=== PATIENT | female | born 1975 | race African-American/Black ===

== ENCOUNTER 2018-03-13 07:55 | Inpatient (IN) | payer OTHER ==
[2018-03-12 12:39] VITALS: BMI 36.8
[2018-03-13] MEDS ORDERED: DEXAMETHASONE SOD PHOSPHATE/PF 10 MG/ML SDV ONE (08:37)
[2018-03-13] MEDS ORDERED: ROPIVACAINE HCL 0.5% 30ML VIAL ONE (08:37)
[2018-03-13] MEDS ORDERED: MIDAZOLAM HCL 2 MG/2 ML SINGLE DOSE VIAL ONE ×2 (08:38)
--- NOTE | 2018-03-13 08:43 | HP ---
Admitting History and Physical - Admission Chief Complaint: Morbid obesity History Source: Patient Limitations to Obtaining History: No Limitations - Past Medical History Cardiovascular: Yes: HTN Pulmonary: Yes: Asthma ...LMP: 02/23/18 ...LMP Comment: HEAVY PERIODS ...: No - Smoking History Smoking history: Never smoked - Alcohol/Substance Use Hx Alcohol Use: No Home Medications - Allergies Allergies/Adverse Reactions: Allergies Allergy/AdvReac Type Severity Reaction Status Date / Time adhesive AdvReac Severe Verified 03/13/18 08:32 adhesive tape AdvReac Severe Verified 03/13/18 08:32 - Home Medications Home Medications: Ambulatory Orders Naproxen [Naprosyn -] 500 mg PO DAILY 05/17/15 Albuterol Sulfate [Proair Respiclick] 90 mcg IH PRN PRN 02/06/18 Chlorthalidone 25 mg PO DAILY 02/06/18 Ferrous Sulfate 325 mg PO DAILY 02/06/18 Propranolol HCl 20 mg PO BID 02/06/18 Sumatriptan Succinate [Imitrex -] 50 mg PO PRN PRN 02/06/18 predniSONE [Deltasone -] 40 mg PO ASDIR 03/12/18 Famotidine [Pepcid] 20 mg PO BID #60 tablet 03/13/18 Oxycodone HCl/Acetaminophen [Percocet 5-325 mg Tablet] 1 - 2 tab PO Q6H #28 tab MDD 4 03/13/18 Family Disease History - Family Disease History Family Disease History: Diabetes: Father (htn, cva), Mother (alcohol, htn), Heart Disease: Father, Mother, CA: Mother Review of Systems - Review of Systems Constitutional: denies: Chills, Fever HENT: reports: No Symptoms Neck: reports: No Symptoms Cardiovascular: reports: No Symptoms Respiratory: reports: No Symptoms Gastrointestinal: reports: No Symptoms Neurological: denies: Change in LOC Pain Intensity: 0 Physical Examination Vital Signs: Vital Signs Temperature 97.4 F L 03/13/18 08:28 Pulse Rate 77 03/13/18 08:28 Respiratory Rate 20 03/13/18 08:28 Blood Pressure 114/80 03/13/18 08:28 O2 Sat by Pulse Oximetry (%) 96 03/13/18 08:28 HENT: Yes: WNL Neck: Yes: WNL Cardiovascular: Yes: Regular Rate and Rhythm Respiratory: Yes: Regular Gastrointestinal: Yes: Soft, Abdomen, Obese Neurological: Yes: Alert, Oriented Problem List - Problems (1) Morbid obesity due to excess calories Code(s): E66.01 - MORBID (SEVERE) OBESITY DUE TO EXCESS CALORIES (2) Sleep apnea Code(s): G47.30 - SLEEP APNEA, UNSPECIFIED Qualifiers: Sleep apnea type: obstructive Qualified Code(s): G47.33 - Obstructive sleep apnea (adult) (pediatric) (3) Obesity (BMI 30-39.9) Code(s): E66.9 - OBESITY, UNSPECIFIED Assessment/Plan Laparoscopic possible open vertical sleeve gastrectomy possible liver biopsy EGD
[2018-03-13] MEDS ORDERED: ALBUTEROL SO4 8 GM HFA INHALER IH PRN (08:44)
[2018-03-13] MEDS ORDERED: DEXAMETHASONE SOD PHOSPHATE 4 MG/1 ML VIAL ONE (08:58)
[2018-03-13] MEDS ORDERED: ONDANSETRON 4 MG/2 ML VIAL ONE ×2 (08:58→11:22)
[2018-03-13] MEDS ORDERED: ROCURONIUM BROMIDE 50 MG/5 ML VIAL ONE ×2 (08:59→09:37)
[2018-03-13] MEDS ORDERED: PROPOFOL 20 ML ONE ×2 (08:59)
[2018-03-13] MEDS ORDERED: fentaNYL CITRATE 250 MCG/5 ML VIAL ONE (08:59)
[2018-03-13] MEDS ORDERED: ceFAZolin SODIUM 1 GM VIAL IVPB ONE (09:38)
[2018-03-13] MEDS ORDERED: BUPIVACAINE HCL/PF (5 MG/ML) 30 ML VIAL IJ ONE (10:25)
[2018-03-13] MEDS ORDERED: GLYCOPYRROLATE 0.2 MG/1 ML VIAL ONE (10:31)
[2018-03-13] MEDS ORDERED: NEOSTIGMINE METHYLSULFATE 0.5 MG/ML - 10 ML MDV ONE (10:31)
--- NOTE | 2018-03-13 10:40 | SURG ---
Surgery Water Filterer Note Water Filterer: Rachna Machuca PA-C Date of Service: 03/13/18 Diagnosis: morbid obesity Procedure: laparoscopic vertical sleeve gastrectomy, liver biopsy, EGD I was present for the entirety of the operative procedure. For further detail, please refer to operative report. Visit type - Case Type Case Type: Scheduled - Emergency Emergency Visit: No - New patient This patient is new to me today: Yes Date on this admission: 03/13/18
--- NOTE | 2018-03-13 10:41 | OP ---
Operative Note - Note: Operative Date: 03/13/18 Pre-Operative Diagnosis: Morbid obesity Operation: Laparoscopic vertical sleeve gastrectomy, liver biopsy, EGD Post-Operative Diagnosis: Same as Pre-op (as well as hepatomegaly) Surgeon: Farzad Daly Anesthesiologist/REIN[employer]CING [employer] WORKERS: Rachna Machuca Anesthesia: General Specimens Removed: Greater curvature of stomach. Liver biopsy Estimated Blood Loss (mls): 30 Drains & Tubes with Location: 36 Fr Bougie Operative Report Dictated: Yes
[2018-03-13] MEDS: LABETALOL HCL 5 MG/1 ML (100MG/20 ML VIAL) IVPUSH ONE ×2 (11:05→11:20)
--- NOTE | 2018-03-13 11:07 | SPEC ---
DATE OF OPERATION: 03/13/2018 PREOPERATIVE DIAGNOSES: 1. Morbid obesity. 2. Body mass index of 36.9. 3. Sleep apnea. 4. Hypertension. POSTOPERATIVE DIAGNOSES: 1. Morbid obesity. 2. Body mass index of 36.9. 3. Sleep apnea. 4. Hypertension. 5. Hepatomegaly. PROCEDURES PERFORMED: 1. Laparoscopic vertical sleeve gastrectomy. 2. Laparoscopic wedge liver biopsy. 3. Esophagogastroduodenoscopy. SURGEON: Farzad Daly M.D. HELMINTHOLOGY TEACHER: GISSEL Burdick SPECIMEN: 1. Greater curvature of the stomach. 2. Liver biopsy. ESTIMATED BLOOD LOSS: 30 mL. DRAINS: None. ANESTHESIA: GET. BOUGIE SIZE: 36 [place] REASON FOR PROCEDURE: The patient is a 43-year-old female who presents for weight loss options. After describing the different options, she decided to proceed with a laparoscopic, possible open vertical sleeve gastrectomy, possible liver biopsy and EGD. The patient was seen by the respective subspecialties and cleared for surgery. The risks and benefits of the procedure were explained. These included bleeding, infection, hernia, NJ, DVT, PE, injury to surrounding structures including the liver, colon, bowel, spleen, esophagus, vessel injury, nerve injury, weight regain, gastric leak, staple line leak, sleeve leak, obstruction, vitamin deficiency, hair loss and as some of the possible complications. The patient understood and signed informed consent. DESCRIPTION OF PROCEDURE: The patient was placed supine on the operating room table. The patient underwent general endotracheal intubation. The arms were brought out at 90 degrees and secured. A footboard was placed and the legs were secured laterally with padding. The abdomen was prepped and draped in the usual sterile fashion. A timeout was performed. An incision was made in the left upper quadrant and a Veress needle inserted. Pneumoperitoneum was established. Subsequently, the Veress needle was removed and a 5-mm trocar was placed under direct visualization with the laparoscope. The laparoscopic camera was then inserted and inspection of the abdominal cavity was performed. An incision was then made in the supraumbilical area and a 15-mm trocar was placed under direct visualization. A 5-mm trocar was then placed in the right upper quadrant and a 5-mm trocar was placed below the left subcostal margin. A stab wound was made in the subxiphoid area and a Sherly clamp inserted and removed to dilate the tract. A Jaqui liver retractor was inserted. The post was secured at the bedside by the nursing staff. The patient was placed in steep reverse Trendelenburg position and the Jaqui liver retractor was used to secure the liver towards the anterior abdominal wall. The pylorus was identified and 6 cm proximal to it, the lesser sac was entered using the LigaSure device. All lateral attachments to the greater curvature of the stomach, including the short gastric vessels, were ligated using the LigaSure device toward the gastrosplenic and gastrophrenic ligaments. Once this was done in its entirety, it was confirmed that all tubes within the nasal or oropharyngeal cavity, including a temperature probe, was removed by Anesthesia. The bougie was then inserted by Anesthesia. Transection of the stomach was then begun staying adjacent to the bougie but away from the angularis. Transection of the stomach was performed near the portion of the stomach where the lesser sac was entered. Two laparoscopic Endo-BLAINE black rula were used at this location. Laparoscopic Endo BLAINE purple staple loads were then used for the remainder of the transection until the greater curvature of the stomach was fully transected. This was done staying close to the bougie. Care was taken to stay away from the angle of His cephalad. The staple line was then inspected. Hemostasis was identified. A leak test was then performed. It was clamped distally to the staple line. Irrigation solution was placed in the left upper quadrant and air was insufflated by Anesthesia into the sleeve. No leaks were identified. No obstruction was identified. This was done through the entirety of the staple line. In addition, an upper endoscopy was performed. The endoscope was placed into the patients mouth and the entirety of the esophagus, GE junction, gastric pouch and staple line were inspected. No obstruction or leak was noted. The stomach was suctioned and the endoscope removed fully intact. At this point, the irrigation solution was suctioned and again, hemostasis was noted. A wedge liver biopsy was then performed. The left lobe of the liver was identified and a portion of the edge was grasped. Using electrocautery, a wedge of the liver was excised. This was removed and sent off the field as specimen. Hemostasis at the site of the wedge liver biopsy was attained using electrocautery. The 15-mm supraumbilical trocar was then removed and the greater curvature specimen removed from the site using a sponge stick hooker. The specimen was inspected and a Veress needle inserted. The specimen insufflated adequately and no leak was identified. The staple line was noted to be intact. A Nickolas-Tanika device was then used to close the fascia with a 0 Vicryl suture at the site. Again, hemostasis was noted. The Jaqui liver retractor was then removed under direct visualization. Pneumoperitoneum was desufflated and the fascial sutures were secured. Hemostasis was noted at all incision sites and Marcaine was injected at all incision sites. All incision sites were closed using 4-0 Biosyn. Sterile dressings were applied. The patient tolerated the procedure well and was transferred to the recovery room in stable condition. The patient was transferred to telemetry for further monitoring. Brandee [id number]
[2018-03-13] MEDS: MIDAZOLAM HCL 10 MG/10 ML VIAL IVPUSH SCH ×4 (11:20→11:50)
[2018-03-13] MEDS ORDERED: METOCLOPRAMIDE HCL INJECTION 10 MG/2 ML VIAL ONE (11:22)
[2018-03-13] MEDS ORDERED: FAMOTIDINE 20 MG/50 ML IVPB 20 MG/50 ML MG IVPB ONE (11:22)
[2018-03-13] MEDS ORDERED: ACETAMINOPHEN INJECTION 100 ML IVPB ONE (11:22)
[2018-03-13 11:26] LABS: HEMATOCRIT 37.4 % (32.4-45.2); HEMOGLOBIN 12.2 GM/dL (10.7-15.3); MCH 28.7 pg (25.7-33.7); MCHC 32.6 g/dl (32.0-36.0); MEAN CELL VOLUME 88.1 fl (80-96); MEAN PLT VOLUME 9.3 fl (7.5-11.1); PLATELET COUNT 305 K/MM3 (134-434); RBC 4.24 M/mm3 (3.60-5.2); RDW 16.4 % (11.6-15.6); WHITE BLOOD COUNT 11.4 K/mm3 (4.0-10.0)
[2018-03-13] MEDS: ACETAMINOPHEN 1000 MG/100 ML VIAL (NON FORMULARY) IVPB SCH ×3 (11:30→17:11)
[2018-03-13] MEDS ORDERED: ALBUTEROL SO4 0.083% IH SOL 2.5 MG/3 ML VIAL.NEB. NEB ONE (11:30)
[2018-03-13] MEDS ORDERED: hydrALAZINE HCL 20 MG/ML VIAL ONE (11:32)
[2018-03-13 11:54] LABS: ALBUMIN 3.2 g/dl (3.4-5.0); ALK PHOS 78 U/L (45-117); ANION GAP 8 (8-16); BILIRUBIN,TOTAL 0.2 mg/dL (0.2-1.0); BLOOD UREA NITROGEN 19 mg/dL (7-18); CALCIUM 8.4 mg/dL (8.5-10.1); CHLORIDE 106 mmol/L (98-107); CO2 30 mmol/L (21-32); CREATININE 1.2 mg/dL (0.55-1.02); GLUCOSE,RANDOM 155 mg/dL (74-106); POTASSIUM 3.5 mmol/L (3.5-5.1); SGOT/AST 93 U/L (15-37); SGPT/ALT 93 U/L (12-78); SODIUM 144 mmol/L (136-145); TOT PROT 6.6 g/dl (6.4-8.2)
[2018-03-13] MEDS ORDERED: hydrALAZINE HCL 20 MG/ML VIAL IVPUSH ONE (12:13)
[2018-03-13] MEDS: METOCLOPRAMIDE HCL INJECTION 10 MG/2 ML VIAL IVPUSH SCH ×2 (12:30→17:10)
[2018-03-13] MEDS: SODIUM CHLORIDE 1,000 ML IV SCH ×2 (14:21→20:11)
[2018-03-13] MEDS: ONDANSETRON 4 MG/2 ML VIAL IVPUSH SCH ×2 (15:30→18:32)
[2018-03-13] MEDS ORDERED: FAMOTIDINE 20 MG PREMIXED IVPB IVPB ONE (15:45)
[2018-03-13] MEDS: morphine SULFATE 4 MG/ML VIAL IVPUSH PRN ×2 (16:03→20:07)
[2018-03-13] MEDS: ENOXAPARIN NA (PORCINE) 40 MG/0.4 ML DISP.SYRIN SQ SCH (22:29)
[2018-03-13] MEDS: FAMOTIDINE 20 MG/50 ML IVPB 20 MG/50 ML MG IVPB SCH (22:30)
[2018-03-14] MEDS: ONDANSETRON 4 MG/2 ML VIAL IVPUSH SCH ×6 (00:01→17:05)
[2018-03-14] MEDS: METOCLOPRAMIDE HCL INJECTION 10 MG/2 ML VIAL IVPUSH SCH ×5 (00:01→18:30)
[2018-03-14] MEDS: ACETAMINOPHEN 1000 MG/100 ML VIAL (NON FORMULARY) IVPB SCH ×2 (00:01→05:50)
[2018-03-14] MEDS: SODIUM CHLORIDE 1,000 ML IV SCH ×2 (05:49→09:59)
[2018-03-14 08:02] LABS: HEMATOCRIT 35.2 % (32.4-45.2); HEMOGLOBIN 11.6 GM/dL (10.7-15.3); MCH 28.6 pg (25.7-33.7); MCHC 32.9 g/dl (32.0-36.0); MEAN PLT VOLUME 9.9 fl (7.5-11.1); PLATELET COUNT 287 K/MM3 (134-434); RBC 4.05 M/mm3 (3.60-5.2); RDW 16.4 % (11.6-15.6); WHITE BLOOD COUNT 16.8 K/mm3 (4.0-10.0)
[2018-03-14 08:27] LABS: ALBUMIN 2.9 g/dl (3.4-5.0); ALK PHOS 56 U/L (45-117); ANION GAP 8 (8-16); BILIRUBIN,TOTAL 0.2 mg/dL (0.2-1.0); BLOOD UREA NITROGEN 10 mg/dL (7-18); CALCIUM 7.8 mg/dL (8.5-10.1); CHLORIDE 101 mmol/L (98-107); CO2 30 mmol/L (21-32); CREATININE 0.9 mg/dL (0.55-1.02); GLUCOSE,RANDOM 125 mg/dL (74-106); POTASSIUM 3.3 mmol/L (3.5-5.1); SGOT/AST 79 U/L (15-37); SGPT/ALT 104 U/L (12-78); SODIUM 139 mmol/L (136-145)
[2018-03-14] MEDS: morphine SULFATE 4 MG/ML VIAL IVPUSH PRN ×2 (09:56→14:49)
[2018-03-14] MEDS: FAMOTIDINE 20 MG/50 ML IVPB 20 MG/50 ML MG IVPB SCH (09:58)
[2018-03-14] MEDS: ENOXAPARIN NA (PORCINE) 40 MG/0.4 ML DISP.SYRIN SQ SCH (09:58)
[2018-03-14 13:02] LABS: BASO % 0.1 % (0-2.0); HEMOGLOBIN 11.5 GM/dL (10.7-15.3); LYMPH % 17.2 % (8-40); MCH 28.7 pg (25.7-33.7); MEAN PLT VOLUME 8.5 fl (7.5-11.1); MONO % 6.1 % (3.8-10.2); NEUT % 76.6 % (42.8-82.8); PLATELET COUNT 278 K/MM3 (134-434); RBC 4.02 M/mm3 (3.60-5.2); RDW 16.3 % (11.6-15.6); WHITE BLOOD COUNT 16.4 K/mm3 (4.0-10.0)
--- NOTE | 2018-03-14 14:40 | PN ---
Progress Note (short form) - Note Progress Note: POD #1 NO acute events since surgery per RN notes. Alert. Doing well. C/o mild incisional tenderness. OOB and ambulating. Voiding spontaneously. Denies n/v/f/c, CP or SOB. Last Vital Signs Temp Pulse Resp BP Pulse Ox 98.5 F 76 18 139/74 97 03/14/18 09:00 03/14/18 09:00 03/14/18 09:00 03/14/18 09:00 03/14/18 09:00 UGI: no evidence of leak, extravasation or gastric outlet obstruction. Gen: nad ABD: all surgical ports c/d/i LE: scds bilat. nt. <Isaiah Rome P - Last Filed: 03/14/18 14:37> - Note Progress Note: Agree POD 1 No nausea AVSS UGI: no leak/obstruction Clears Discharge planning <Farzad Daly - Last Filed: 03/14/18 15:49> Problem List - Problems (1) Morbid obesity due to excess calories Assessment/Plan: Start Bariatric Stage 1 diet. Cont OOB and ambulate Pain management PRN DC home this evening if tolerates diet Code(s): E66.01 - MORBID (SEVERE) OBESITY DUE TO EXCESS CALORIES <Isaiah Rome P - Last Filed: 03/14/18 14:37> - Problems (1) Morbid obesity due to excess calories Code(s): E66.01 - MORBID (SEVERE) OBESITY DUE TO EXCESS CALORIES (2) Sleep apnea Code(s): G47.30 - SLEEP APNEA, UNSPECIFIED Qualifiers: Sleep apnea type: obstructive Qualified Code(s): G47.33 - Obstructive sleep apnea (adult) (pediatric) (3) Obesity (BMI 30-39.9) Code(s): E66.9 - OBESITY, UNSPECIFIED <Farzad Daly - Last Filed: 03/14/18 15:49>
[2018-03-14] MEDS ORDERED: PT OWN MED DRAWER 7, Y5N ONE (14:42)
[2018-03-14] MEDS ORDERED: CHLORTHALIDONE 25 MG TABLET PO SCH (16:00)
--- NOTE | 2018-03-14 17:44 | CON.CARD ---
Consult Consult Specialty:: Cardiology Reason for Consultation:: HTN - History of Present Illness Chief Complaint: BP high History of Present Illness: 43 f with a PMH of HTN x one year, obesity, migraines. S/P Laporscopic sleeve Bariatric surgery. BP's noted to be elevated. Last BP was 144/94 mmHg BP meds include chlorthalidone 25 mg daily and is on Inderal for Migraines. - Past Medical History Cardio/Vascular: Yes: HTN Pulmonary: Yes: Asthma ...LMP: 02/23/18 ...LMP Comment: HEAVY PERIODS ...: No - Alcohol/Substance Use Hx Alcohol Use: No - Smoking History Smoking history: Never smoked Home Medications - Allergies Allergies/Adverse Reactions: Allergies Allergy/AdvReac Type Severity Reaction Status Date / Time adhesive AdvReac Severe Verified 03/13/18 08:32 adhesive tape AdvReac Severe Verified 03/13/18 08:32 - Home Medications Home Medications: Ambulatory Orders Naproxen [Naprosyn -] 500 mg PO DAILY 05/17/15 Albuterol Sulfate [Proair Respiclick] 90 mcg IH PRN PRN 02/06/18 Chlorthalidone 25 mg PO DAILY 02/06/18 Ferrous Sulfate 325 mg PO DAILY 02/06/18 Propranolol HCl 20 mg PO BID 02/06/18 Sumatriptan Succinate [Imitrex -] 50 mg PO PRN PRN 02/06/18 predniSONE [Deltasone -] 40 mg PO ASDIR 03/12/18 Famotidine [Pepcid] 20 mg PO BID #60 tablet 03/13/18 Oxycodone HCl/Acetaminophen [Percocet 5-325 mg Tablet] 1 - 2 tab PO Q6H #28 tab MDD 4 03/13/18 Family Disease History - Family Disease History Family Disease History: Diabetes: Father (htn, cva), Mother (alcohol, htn), Heart Disease: Father, Mother, CA: Mother Vital Signs: Vital Signs Temperature 98.2 F 03/14/18 14:00 Pulse Rate 72 03/14/18 14:00 Respiratory Rate 20 03/14/18 14:00 Blood Pressure 159/91 03/14/18 14:00 O2 Sat by Pulse Oximetry (%) 97 03/14/18 09:00 Constitutional: Yes: No Distress HENT: Yes: WNL Neck: Yes: WNL Respiratory: Yes: CTA Bilaterally Gastrointestinal: Yes: Normal Bowel Sounds Cardiovascular: Yes: Regular Rate and Rhythm (NL S1S2 No MRHG) JVD: No Carotid Bruit: No Edema: No Neurological: Yes: Alert, Oriented - Other Data Labs, Other Data: CBC, BMP 03/14/18 12:55 03/14/18 06:25 Assessment/Plan 3 f with a PMH of HTN x one year, obesity, migraines. S/P Laporscopic sleeve Bariatric surgery. BP's noted to be elevated. Last BP was 144/94 mmHg BP meds include chlorthalidone 25 mg daily and is on Inderal for Migraines. Would add amlodipine 2.5 mg PO daily. Should follow up as outpatient for BP management. Call prn
[2018-03-14] MEDS ORDERED: amLODIPine BESYLATE 2.5 MG TABLET (FP) PO SCH (18:30)
[2018-03-14 19:53] VITALS: BP 140/82; PULSE 67; TEMP 98.7
--- NOTE | 2018-03-17 16:32 | PATH ---
Surgical Pathology Report Patient Name: WENCESLAO CRUZ [facility]. Rec. #: [id number] /Age/Gender: 1975 (Age: 43) / F Account: [id number] Location: 4 W TELEMETRY U Taken: 03/13/2018 Received: 03/13/2018 Reported: 03/17/2018 Physicians: Farzad Daly M.D. Specimen(s) Received A: GREATER CURVATURE STOMACH B: LIVER BIOPSY Clinical History Morbid obesity Final Diagnosis A. Stomach, greater curvature, laparoscopic vertical SLEEVE gastrectomy: Portion of stomach with moderate chronic ACTIVE gastritis. Immunohistochemical STAIN FOR H. Pylori is POSITIVE (many). B. Liver, biopsy: LIVER PARENCHYMA WITH MODERATE STEATOSIS (~60%). MILD FOCAL CHOLESTASIS. NO INCREASE IN IRON AND FIBROSIS ON PERFORMED SPECIAL STAINS (IRON AND TRICHROME). Electronically Signed Chel Dave M.D. Gross Description A. Received in formalin, labeled "greater curvature of stomach," is a 135 gram, 16.0 x 4.0 x 3.4 cm. portion of stomach with a stapled margin of resection. The serosa is trent-macario with minimal attached fat. The mucosa is trent-pink with focally flattened folds No mucosal masses are identified. Employment Appeals Examiner sections are submitted in one cassette. B. Received in formalin labeled "liver biopsy," is a 1.8 x 1.3 x 0.8 cm trent portion of soft tissue, consistent with a liver biopsy. The specimen is sectioned and entirely submitted in one cassette. /03/13/2018 saudi/03/13/2018
== END 2018-03-14 23:20 | disposition home or self-care (01) | DRG 403 ==
LOC: JSAMEDAYSX 07:55 → EDSTATUS 12:00 → J4W 15:45
PROVIDERS: ADMIT Surgery; ATTEND Surgery
PROC: 0DB64Z3 Excision of Stomach, Percutaneous Endoscopic Approach, Vertical (ICD-10-PCS; principal; 2018-03-13 10:00)
PROC: 0FB24ZX Excision of Left Lobe Liver, Percutaneous Endoscopic Approach, Diagnostic (ICD-10-PCS; 2018-03-13 10:00)
PROC: 0DJ08ZZ Inspection of Upper Intestinal Tract, Via Natural or Artificial Opening Endoscopic (ICD-10-PCS; 2018-03-13 10:00)
DX: E66.01 Morbid (severe) obesity due to excess calories (principal); Z68.39 Body mass index [BMI] 39.0-39.9, adult; R16.0 Hepatomegaly, not elsewhere classified; I10 Essential (primary) hypertension; J45.909 Unspecified asthma, uncomplicated; G47.30 Sleep apnea, unspecified
CPT/HCPCS: 36415; 74241-TC-FY; 80053; 84703; 85025; 85027; 86850; 86900; 86901; 88307-TC; 94010; 94760; J0131; J7030

== ENCOUNTER 2018-06-27 09:02 | Emergency (ER) | payer OTHER ==
[2018-06-27 09:15] VITALS: BMI 28.8
--- NOTE | 2018-06-27 09:25 | PDOC ---
History of Present Illness <Carlota Whitlock - Last Filed: 06/27/18 12:31> - History of Present Illness Initial Comments: 43 year old female s/p gastric sleeve (03/15) with PMH of diabetes and HTN (both resolved since gastric sleeve) presenting with left sided chest pain and shoulder pain for the past three weeks that has been complicated with numbness in her arm and fingers this AM. Patient denies any trauma or overuse. Her physical therapist believes that this was a light muscular injury. She hasn't taken Tylenol or Motrin because she had issues with her tylenol prescription and she cannot take motrin. Denies nausea, vomiting, diarrhea, constipation, fevers, chills, SOB, or other symptoms. 06/27/18 09:48 <Rafael Michele - Last Filed: 06/27/18 12:49> - General Chief Complaint: Pain Stated Complaint: PAIN Time Seen by Provider: 06/27/18 09:25 Past History <Carlota Whitlock - Last Filed: 06/27/18 12:31> - Past Medical History Anemia: No Asthma: Yes Cancer: No Cardiac Disorders: No CVA: No COPD: No CHF: No Dementia: No Diabetes: No GI Disorders: No Disorders: No HTN: Yes Hypercholesterolemia: Yes Liver Disease: No Seizures: No Thyroid Disease: No - Surgical History Abdominal Surgery: No Appendectomy: Yes (age 8) Cardiac Surgery: No Cholecystectomy: No Lung Surgery: No Neurologic Surgery: No Orthopedic Surgery: No - Suicide/Smoking/Psychosocial Hx Smoking History: Never smoked Hx Alcohol Use: No Drug/Substance Use Hx: No Substance Use Type: None Hx Substance Use Treatment: No <Rafael Michele - Last Filed: 06/27/18 12:49> - Past Medical History Allergies/Adverse Reactions: Allergies Allergy/AdvReac Type Severity Reaction Status Date / Time adhesive AdvReac Severe Verified 06/27/18 09:11 adhesive tape AdvReac Severe Verified 06/27/18 09:11 Home Medications: Ambulatory Orders Ferrous Sulfate 325 mg PO DAILY 02/06/18 Cholecalciferol (Vitamin D3) [Vitamin D3 -] 2,000 unit PO DAILY 06/27/18 Cyclobenzaprine HCl [Flexeril 10 mg] 10 mg PO TID PRN #15 tablet 06/27/18 Lidocaine 5% Patch [Lidoderm Patch -] 1 patch TP DAILY #7 patch 06/27/18 Potassium Chloride [Klor-Con] 20 meq PO ASDIR 06/27/18 Review of Systems - Review of Systems Constitutional: No: Chills, Diaphoresis, Fever HEENTM: No: Blurred Vision, Tearing Respiratory: No: Cough, Orthopnea, Shortness of Breath Cardiac (ROS): Yes: Chest Pain. No: Edema, Lightheadedness, Palpitations ABD/GI: No: Constipated, Diarrhea, Nausea : No: Dysuria, Discharge, Incontinence Integumentary: No: Change in Color, Flushing, Lesions, Lumps Neurological: Yes: Paresthesia. No: Numbness, Tremors, Weakness Psychiatric: No: Anxiety, Depression Hematologic/Lymphatic: No: Anemia, Blood Clots, Easy Bleeding <Rafael Michele - Last Filed: 06/27/18 12:49> *Physical Exam - Vital Signs Last Vital Signs Temp Pulse Resp BP Pulse Ox 98.4 F 71 16 123/68 99 06/27/18 09:14 06/27/18 09:14 06/27/18 09:14 06/27/18 09:14 06/27/18 09:14 <Carlota Whitlock - Last Filed: 06/27/18 12:31> - Vital Signs Last Vital Signs Temp Pulse Resp BP Pulse Ox 98.4 F 71 16 123/68 99 06/27/18 09:14 06/27/18 09:14 06/27/18 09:14 06/27/18 09:14 06/27/18 09:14 - Physical Exam General Appearance: Yes: Nourished, Appropriately Dressed. No: Apparent Distress HEENT: positive: EOMI, BEBO, Normal ENT Inspection, Normal Voice Neck: positive: Trachea midline, Normal Thyroid, Supple. negative: Tender, Rigid Respiratory/Chest: positive: Chest Tender (reproducible left sided upper rib tenderness), Lungs Clear, Normal Breath Sounds. negative: Respiratory Distress , Accessory Muscle Use Cardiovascular: positive: Regular Rhythm, Regular Rate Gastrointestinal/Abdominal: positive: Normal Bowel Sounds, Flat, Soft. negative : Tender Lymphatic: negative: Adenopathy, Tenderness Musculoskeletal: negative: Normal Inspection (left sided shoudler tenderness), Decreased Range of Motion Extremity: positive: Normal Capillary Refill, Tender (per above). negative: Normal Inspection Integumentary: positive: Normal Color, Dry, Warm Neurologic: positive: Fully Oriented, Alert, Normal Mood/Affect, Normal Response , Motor Strength 5/5 <Rafael Michele - Last Filed: 06/27/18 12:49> Moderate Sedation - Procedure Monitoring Vital Signs: Procedure Monitoring Vital Signs Temperature 98.4 F 06/27/18 09:14 Pulse Rate 71 06/27/18 09:14 Respiratory Rate 16 06/27/18 09:14 Blood Pressure 123/68 06/27/18 09:14 O2 Sat by Pulse Oximetry (%) 99 06/27/18 09:14 <Carlota Whitlock - Last Filed: 06/27/18 12:31> - Procedure Monitoring Vital Signs: Procedure Monitoring Vital Signs Temperature 98.4 F 06/27/18 09:14 Pulse Rate 71 06/27/18 09:14 Respiratory Rate 16 06/27/18 09:14 Blood Pressure 123/68 06/27/18 09:14 O2 Sat by Pulse Oximetry (%) 99 06/27/18 09:14 <Rafael Michele - Last Filed: 06/27/18 12:49> ED Treatment Course - ADDITIONAL ORDERS Additional order review: Laboratory Results 06/27/18 09:39 Urine HCG, Qual Negative - RADIOLOGY Radiology Studies Ordered: Category Date Time Status CHEST PA & LAT [RAD] Routine Radiology 06/27/18 12:01 Completed - Medications Given in the ED: ED Medications Discontinued Medications Generic Name Dose Route Start Last Admin Trade Name Beverly PRN Reason Stop Dose Admin Acetaminophen 1,000 mg 06/27/18 09:42 06/27/18 10:30 Tylenol - PO 06/27/18 09:43 Not Given ONCE ONE Acetaminophen 975 mg 06/27/18 09:43 06/27/18 09:53 Tylenol - PO 06/27/18 09:44 975 mg ONCE ONE Administration Lidocaine 1 patch 06/27/18 09:43 06/27/18 09:53 Lidoderm Patch - TP 06/27/18 09:44 1 patch ONCE ONE Administration <Carlota Whitlock - Last Filed: 06/27/18 12:31> Medical Decision Making - Medical Decision Making 43 year old female with recent gastric sleeve presenting with acute on subacute left shoulder and left sided chest tenderness for the past three weeks with new onset numbness and tingling of her left hand this morning,. Pain is reproducible over deltoid and left lateral intercostal spaces. Low risk factor for PE or cardiac event. EKG showing rate 64, Pr interval 160, QRS 80, QTc 408, normal axis, and no ST or t-wave changes. CXR and shoulder XR not demonstrating intrapulmonary or skeletal pathology. Pain better with Tylenol and lidocaine patch. Will DC with Tylenol use instructions. 06/27/18 12:45 <Rafael Michele - Last Filed: 06/27/18 12:49> *DC/Admit/Observation/Transfer - Discharge Dispostion Decision to Admit order: No <ChinyereCarlotatahmina Verdin - Last Filed: 06/27/18 12:31> <Rafael Michele - Last Filed: 06/27/18 12:49> Diagnosis at time of Disposition: Shoulder pain Qualifiers: Chronicity: acute Laterality: left Qualified Code(s): M25.512 - Pain in left shoulder Musculoskeletal arm pain Qualifiers: Laterality: left Qualified Code(s): M79.602 - Pain in left arm - Discharge Dispostion Disposition: HOME - Prescriptions Prescriptions: Cyclobenzaprine HCl [Flexeril 10 mg] 10 mg PO TID PRN #15 tablet PRN Reason: Muscle Spasms Lidocaine 5% Patch [Lidoderm Patch -] 1 patch TP DAILY #7 patch - Referrals Referrals: Chel Thompson MD [Primary Care Provider] - Skyler Lazaro MD [Staff Physician] - Luis Manuel Grover MD [Staff Physician] - - Patient Instructions Printed Discharge Instructions: DI for Shoulder Tendinopathy, DI for Shoulder Pain, DI for Musculoskeletal Pain Additional Instructions: you most likely have a tendinopathy/neuropathy avoid heavy lifting or strenous activity rest and take tylenol as needed flexeril is a muscle relaxant, take three times a day as needed may cause sleepiness, do not drive or go to work. topical lidoderm patch to the area affected. continue with range of motion exercises. - Post Discharge Activity Forms/Work/School Notes: Back to Work
--- NOTE | 2018-06-27 09:29 | PDOC ---
Attending Attestation - Resident Resident Name: Alexandra Michelegiftynathan - ED Attending Attestation I have performed the following: I have examined & evaluated the patient, The case was reviewed & discussed with the resident, I agree w/resident's findings & plan - [facility] HPI: 06/27/18 10:28 Ms. Jessie Perez is a 43-year-old female with past medical history significant for HTN (improved after losing weight), DM (improved after losing weight), Obesity, s/p Lap. sleeve bariatric surgery (03/13/18, lost 70 pounds since) and Migraines presents to the emergency department with L. shoulder and upper back and L. rib pain x 3 weeks. a/w intermittent numbness and tingling to the L. fingers. The patient reports the pain is exacerbated with the movement of the arm, with no known alleviation factor. 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 Denies doing any strenuous activity, trauma/injury to the area. Denies taking any medication for the pain. Family History: Father ([place] 70s). Mother: Stents. Breast CA. Allergies: adhesive tape, NKDA Social history: No past or present use of tobacco, alcohol or recreational drugs. Surgical history: Appendectomy and Bariatric Surgery. PCP: Chel Medina MD. - Physicial Exam PE: 06/27/18 10:23 NAD, well appearing, PERRL, EOMI, MMM, nl conjunctiva, anicteric; neck supple. lungs clear, RRR, abdomen soft nontender. +left AC/anterior shoulder, scapula and lat dorsi TTP, FROM internal/external rotation. RADFORD x4, no focal neuro deficits. No peripheral edema. normal color for ethnicity, WWP. - Medical Decision Making 06/27/18 10:29 See HPI for details Vital signs reviewed, wnl. EKG normal sinus rhythm, no interval abnormalities, narrow QRS, ST and T wave segments and morphology normal. Nonspecific T wave abnormalities - clinically doubt ACS or angina or cardiovascular etiology. ED course: most likely msk strain, no neuro deficits, +reproducible pain in left shoulder, upper back and lateral chest wall w/o crepitus or traumatic/skin findings, ROM intact and no overt s/s injuries or skin findings. CXR normal, left shoulder XRay with normal alignment, no calcifications or bony deformities. Lidopatch, tylenol (no analgesia previousl), rx home flexeril, tylenol, lido patch to use. Rest and elevate, minimize exertional/physical activity to avoid injury/strain. Dispo: I discussed the physical exam findings, ancillary test results and final diagnoses with the patient. I answered all of the patient's questions. The patient was satisfied with the care received and felt comfortable with the discharge plan and treatment plan. The patient will return to the Emergency Department with any new, persistent or worsening symptoms. 06/27/18 12:36
[2018-06-27] MEDS ORDERED: ACETAMINOPHEN 500 MG TABLET (FP) PO ONE ×2 (09:42→09:43)
[2018-06-27] MEDS ORDERED: LIDOCAINE 5% TOPICAL PATCH TP ONE (09:43)
[2018-06-27] MEDS ORDERED: ACETAMINOPHEN 325 MG TABLET (FP) ONE (09:46)
[2018-06-27] MEDS ORDERED: LIDOCAINE 5% TOPICAL PATCH ONE (09:46)
[2018-06-27] MEDS ORDERED: CYCLOBENZAPRINE HCL 5 MG TABLET PO SCH (10:00)
[2018-06-27 13:08] VITALS: BP 115/76; PULSE 64; TEMP 98.9
[2018-06-27] MEDS ORDERED: LIDOCAINE PATCH REMOVAL MC SCH (22:00)
--- NOTE | 2018-06-28 17:24 | EKG ---
Test Reason : Blood Pressure : / mmHG Vent. Rate : 064 BPM Atrial Rate : 064 BPM P-R Int : 160 ms QRS Dur : 080 ms QT Int : 396 ms P-R-T Axes : 031 046 037 degrees QTc Int : 408 ms POOR DATA QUALITY, INTERPRETATION MAY BE ADVERSELY AFFECTED NORMAL SINUS RHYTHM NORMAL ECG WHEN COMPARED WITH ECG OF 17-MAY-2015 15:06, NO SIGNIFICANT CHANGE WAS FOUND Confirmed by MD JAIDA, BRIANNA ([id number]) on 06/28/2018 5:24:24 PM Referred By: Confirmed By:BRIANNA SENA MD
== END 2018-06-27 13:10 | disposition home or self-care (01) ==
LOC: JER 09:02
DX: M25.512 Pain in left shoulder (principal); Z98.84 Bariatric surgery status; I10 Essential (primary) hypertension; E78.00 Pure hypercholesterolemia, unspecified; J45.909 Unspecified asthma, uncomplicated
CPT/HCPCS: 71046-TC-FY; 73030-TC-LT-FY; 84703; 93005; 93010; 99282-25